=== PATIENT | male | born 1970 | race Caucasian/White ===

== ENCOUNTER → 2021-02-07 07:18 | Outpatient (CLI) | payer BC, SELFPAY ==
[2021-02-07 07:40] LABS: Basophils # 0.1 K/mm3 (0-0.2); Basophils % 1.2 % (0.1-2.0); Eosinophils # 0.2 K/mm3 (0.0-0.4); Eosinophils % 2.7 % (0.1-12.0); Hematocrit 44.6 % (42.0-52.0); Hemoglobin 15.3 g/dL (14.1-18.0); Lymphocytes # 2.3 K/mm3 (0.7-4.5); Lymphocytes % 37.2 % (10-50); Mean Corpuscular HGB Conc 34.3 g/dL (31.8-35.4); Mean Corpuscular Hemoglobin 28.8 pg (27.0-31.2); Mean Platelet Volume 7.5 fl (7.4-10.4); Monocytes # 0.4 K/mm3 (0.1-1.0); Monocytes % 6.3 % (1.7-9.3); Neutrophils # 3.2 K/mm3 (1.8-7.8); Neutrophils % 52.6 % (37.0-80.0); Platelet Count 171 K/mm3 (142-424); Red Blood Count 5.31 M/mm3 (4.60-6.20); Red Cell Distribution Width 13.4 % (11.5-17.5); White Blood Count 6.1 K/mm3 (4.8-10.8)
[2021-02-07 08:45] LABS: Chloride 104 mmol/L (98-107); Sodium 140 mmol/L (136-145)
[2021-02-07 08:46] LABS: Potassium 4.6 mmoL/L (3.5-5.1)
[2021-02-07 08:48] LABS: Alanine Aminotransferase 7 U/L (12-78); Albumin Level 4.1 g/dl (3.5-5.0); Albumin/Globulin Ratio 1.5 (1.1-1.8); Alkaline Phosphatase 70 U/L (38-126); Anion Gap 11.6 mEq/L (5-15); Aspartate Amino Transferase 25 U/L (17-59); Bilirubin,Total 0.6 mg/dl (0.2-1.3); Blood Urea Nitrogen 20 mg/dl (9-20); Calcium 9.1 mg/dl (8.4-10.2); Carbon Dioxide 29 mmol/L (22.0-30.0); Cholesterol 163 mg/dl (140-200); Estimated Glomerular Filt Rate 65 ml/min (>60); GFR (African American) 78 ML/MIN (>60); Globulin 2.8 g/dL (1.3-3.2); Glucose 99 mg/dl (74-100); Total Protein,Serum 6.9 g/dl (6.3-8.2); Triglycerides 64 mg/dl (30-150); VLDL Cholesterol 13 mg/dL (0-40)
[2021-02-07 08:49] LABS: Chol/HDL Ratio 3.3 (1-3.5); HDL Cholesterol 50 mg/dl (40-60)
[2021-02-07 09:00] LABS: Direct LDL Cholesterol 80.22 mg/dL (100-129)
[2021-02-07 09:20] LABS: Thyroid Stimulating Hormone 3.62 uIU/mL (0.465-4.68)
== END ==
PROVIDERS: Visit Provider Family Medicine
DX: R53.83 Other fatigue (principal)
CPT/HCPCS: 36415; 80053; 80061; 84443; 85025

== ENCOUNTER 2021-04-13 11:29 | Emergency (ER) | payer BC, SELFPAY ==
[2021-04-13 12:09] VITALS: PULSE 74; RESP 14; TEMP 36.6; O2SAT 97; BMI 22.5
[2021-04-13 12:18] VITALS: BP 114/75; PULSE 74; RESP 14; TEMP 36.7
--- NOTE | 2021-04-13 12:24 | HMH.EDUTC ---
[facility] [place] Disposition Clinical Impression: Viral syndrome, Viral pharyngitis Disposition: Home, Self-Care Condition on Discharge: Good Instructions: DI for Pharyngitis/Tonsillopharyngitis -- Adult, DI for COVID-19 (Suspected or Confirmed ), Preventing the Spread of Coronavirus Discharge Instructions Additional Instructions: Drink plenty of fluids. Take tylenol for pain or fever. Return if you begin to have difficulty breathing. Follow up with your regular doctor. GO TO THE ER FOR ANY WORSENING SYMPTOMS Quarantine until you know the results of your covid-19 test. If it is positive, the health department should call you and give you further instructions about your length of Quarantine and other things. Notify your school or workplace of your results and follow their instructions regarding return to work/school. Once you're feeling better and if your covid-19 test is negative this time, I encourage you to get the covid-19 vaccine. Prescriptions: predniSONE [Deltasone 10mg tablet] 10 mg PO BID 3 Days #6 tab Transmission Status: Received by [facility] Referrals: Agustín Hansen MD [Primary Care Provider] - Time of Disposition: 12:32 Medical Decision Making - Medical Records Medical records reviewed: No: I reviewed the patient's medical records. - Isac Inquiry Pt receiving controlled substance: No Vital Signs: 04/13/21 12:09 04/13/21 12:18 Temperature 97.9 F 98.1 F Temperature Source Oral Pulse Rate 74 Pulse Rate [Left] 74 Respiratory Rate 14 14 Blood Pressure 114/75 02 Sat by Pulse Oximetry 97 - Lab Data Lab results reviewed: Yes: I reviewed the patient's lab results. Lab Results 04/13/21 12:19: Strep Scn Rapid Clinic Negative Orders (Tests/Meds): ORDERS Category Date Time Status Strep Screen Confirmation Stat Micro 04/13/21 12:19 Received [facility] [place] HPI - General Stated complaint: covid test Time Seen by Provider: 04/13/21 12:24 Mode of Arrival: Ambulatory Source of Information: Patient Limitations: No Limitations Description of Symptoms (Recalled from Triage Doc. by RN): pt c/o a sore throat. wants a covid test. HEENT Symptoms (Recalled from RN notes): Yes (sore throat) Resp Symptoms (Recalled from RN notes): No Skin Symptoms (Recalled from RN notes): No MS Symptoms (Recalled from RN notes): No Functional Status (Recalled from RN notes): na - History of Present Illness Provider Complaint: He c/o sore throat for the past 3 days. He denies fever/chills. He has not been vaccinated against covid-19. - Related Data Previous Rx's Medication Instructions Recorded predniSONE [Deltasone 10mg tablet] 10 mg PO BID 3 Days #6 tab 04/13/21 Allergies Allergy/AdvReac Type Severity Reaction Status Date / Time No Known Allergies Allergy Verified 04/13/21 12:15 - Worker's Comp Is this a Worker's Comp case?: No [facility] History - Hepatitis A Screen Drug use history?: No High risk sexual behaviors?: No History of sexually transmitted infection?: No Currently employed?: No Childcare worker?: No Do you have indoor plumbing?: Yes Do you have electricity?: Yes Attestation statement:: This patient has been screened for Hepatitis A risk factors. I have reviewed the patient's past medical history: Yes ROS Obtained: Yes All systems reviewed & no additional complaints - Constitutional Constitutional: Reports as per HPI - Eyes Eyes: Denies eye discharge - ENT Ears, Nose, Mouth, and Throat: Reports as per HPI - Cardiovascular Cardiovascular: Denies chest pain - Respiratory Respiratory: Reports as per HPI Physical Exam - General General appearance: alert, in no apparent distress - Head Head exam: atraumatic, normocephalic, normal inspection - Eye Eye exam: Present: normal appearance, PERRL, EOMI - ENT ENT exam: Present: normal exam, mucous membranes moist, normal external ear exam - Expanded ENT Exam TM/Canal exam
[2021-04-13 12:34] LABS: UTC Strep Screen (Rapid) Negative (Negative)
== END 2021-04-13 12:50 | disposition home or self-care (01) ==
PROVIDERS: Emergency Provider Nurse Practitioner Family; PCP Family Medicine
DX: B34.9 Viral infection, unspecified (principal); Z20.822 Contact with and (suspected) exposure to COVID-19
CPT/HCPCS: 87880; 99203; C9803; G0463; U0003; U0005